=== PATIENT | female | born 1990 | race Caucasian/White ===

== ENCOUNTER → 2023-12-08 | Outpatient (CLI) | payer OTHER | LOC: RAD 12:49 | DX: M54.2 Cervicalgia (principal) ==

== ENCOUNTER → 2024-09-12 | Outpatient (CLI) | payer BC | LOC: RAD 09:00 | DX: R91.8 Other nonspecific abnormal finding of lung field (principal); Z87.09 Personal history of other diseases of the respiratory system ==

== ENCOUNTER → 2024-09-30 | Outpatient (CLI) | payer BC ==
[2024-09-30 08:23] LABS: BASO # 0.03 K/mm3 (0.02-0.10); EOS # 0.16 K/mm3 (0.04-0.40); EOS % 1.3 % (1.0-5.0); HEMATOCRIT 44.3 % (37.0-47.0); HEMOGLOBIN 14.4 g/dL (12.5-16.0); LYMPH# 3.75 K/mm3 (1.50-4.00); MEAN CELL VOLUME 89 fl (78-100); MEAN CORPUSCULAR HEMOGLOBIN 29 pg (27-31); MEAN CORPUSCULAR HGB CONC 33 g/dL (33-37); MONO # 0.83 K/mm3 (0.20-0.80); NEU # 7.55 K/mm3 (1.40-6.50); PLATELET COUNT 320 K/mm3 (130-400); RED BLOOD COUNT 4.99 M/mm3 (4.10-5.30); RED CELL DISTRIBUTION WIDTH 12.3 % (11.5-14.5); WHITE BLOOD COUNT 12.4 K/mm3 (4.8-10.8)
[2024-09-30 08:30] LABS: ALBUMIN 4.1 g/dL (3.5-5.0)
[2024-09-30 08:31] LABS: CALCIUM 9.6 mg/dL (8.3-10.5)
[2024-09-30 08:32] LABS: TOTAL PROTEIN 6.6 g/dL (6.4-8.3)
[2024-09-30 08:34] LABS: TOTAL BILIRUBIN 0.6 mg/dL (0.2-1.2)
== END ==
LOC: LAB 08:11
PROVIDERS: Physician Assistant
DX: Z13.29 Encounter for screening for other suspected endocrine disorder (principal); Z13.220 Encounter for screening for lipoid disorders; K90.9 Intestinal malabsorption, unspecified; Z83.3 Family history of diabetes mellitus

== ENCOUNTER → 2024-11-07 | Outpatient (CLI) | payer BC ==
[2024-11-08 01:20] LABS: IMMUNOGLOBULIN E, TOTAL <25 IU/mL (0-100)
[2024-11-10 12:09] LABS: TB GOLD INTERPRETATION.TB GOLD Negative (Negative)
[2024-11-11 05:39] LABS: ANGIOTENSIN CONVERTING ENZYME 18 U/L (14-82)
[2024-11-11 13:52] LABS: ANA SCREEN with REFLEX Positive (Negative)
== END ==
LOC: LAB 14:16
PROVIDERS: Physician Assistant
DX: R91.8 Other nonspecific abnormal finding of lung field (principal)

== ENCOUNTER → 2024-11-12 | Outpatient (CLI) | payer BC ==
[~2024-11-12] MED LIST: Iohexol 300 - 100 ML VIAL IV ONE
== END ==
LOC: RAD 11:20
DX: R06.1 Stridor (principal)
CPT/HCPCS: Q9967